=== PATIENT | female | born 1945 ===

== ENCOUNTER 2020-01-08 10:53 | Outpatient (CLI) | payer OTHER | END 2020-01-08 11:17 | disposition home or self-care (01) | LOC: NUCLEAR 10:53 | DX: I73.9 Peripheral vascular disease, unspecified (principal) ==

== ENCOUNTER 2020-01-22 14:00 | Inpatient (IN) | payer OTHER ==
[~2020-01-22] VITALS: Ht 142.2 cm; Wt 81.6 kg
[2020-01-23] MEDS ORDERED: COZAAR100 MG PO (08:09)
[2020-01-23] MEDS ORDERED: SYNTHROID100 MCG PO (08:09)
[2020-01-23] MEDS ORDERED: GLIMEPIRIDE2 MG (08:10)
[2020-01-23] MEDS ORDERED: SIMVASTATIN10 MG PO (08:10)
[2020-01-23] MEDS ORDERED: ASA81 MG PO (08:10)
[2020-01-28] MEDS ORDERED: MUCINEX SINUS-1 EAC1 (07:52)
[2020-01-28] MEDS ORDERED: NAPROXEN SODIU220 M1 (07:52)
[2020-01-28] MEDS ORDERED: ARICEPT5 MG PO (07:52)
[2020-01-28] MEDS ORDERED: VITAMIN B-121000 MC4 (07:53)
[2020-01-28] MEDS ORDERED: PROPRANOLOL HCL20 MG PO (07:53)
[2020-01-28] MEDS ORDERED: DULOXETINE HCL60 MG PO (07:54)
[2020-01-28] MEDS ORDERED: GABAPENTIN300 M2 PO (07:54)
[2020-01-28] MEDS ORDERED: GABAPENTIN800 M1 PO (07:54)
[2020-01-28] MEDS ORDERED: QUETIAPINE FUMA50 MG PO (07:55)
[2020-01-30] MEDS ORDERED: PERCOCET 5-3251 EACH PO (15:22)
[2020-01-30] MEDS ORDERED: ELIQUIS2.5 MG PO (15:22)
[2020-01-30] MEDS ORDERED: CIPRO500 MG PO (15:22)
[2020-01-31] MEDS ORDERED: PERCOCET 5-3251 EACH PO (07:20)
[2020-01-31] MEDS ORDERED: ELIQUIS2.5 MG PO (07:20)
== END 2020-01-31 20:30 | DRG 470 ==
LOC: ADM 14:00 → EDSTATUS 14:00 → SURH 01-28 06:00 → O/R 01-28 06:00 → SURH 01-28 10:18
PROVIDERS: ADMIT Orthopaedic Surgery; ATTEND Orthopaedic Surgery
PROC: 0SNC0ZZ Release Right Knee Joint, Open Approach (ICD-10-PCS; 2020-01-28)
PROC: 0SRC0JZ Replacement of Right Knee Joint with Synthetic Substitute, Open Approach (ICD-10-PCS; principal; 2020-01-28 12:15)
DX: M17.11 Unilateral primary osteoarthritis, right knee (principal); M80.00XA Age-related osteoporosis with current pathological fracture, unspecified site, initial encounter for fracture; D62 Acute posthemorrhagic anemia; M85.461 Solitary bone cyst, right tibia and fibula; M22.11 Recurrent subluxation of patella, right knee; E66.01 Morbid (severe) obesity due to excess calories; E11.9 Type 2 diabetes mellitus without complications; I10 Essential (primary) hypertension; Z96.651 Presence of right artificial knee joint